=== PATIENT | male | born 1985 | race Caucasian/White ===

== ENCOUNTER 2024-03-06 10:25 | Emergency (ER) | payer MEDICARE, MEDICAID, SELFPAY ==
[2024-03-06 10:36] VITALS: BP 94/64
--- NOTE | 2024-03-06 10:41 | ED.GENMED ---
History of Present Illness
General
Chief Complaint: Crisis Evaluation
Source: patient
Exam Limitations: none
Time Seen by Provider: 03/06/24 10:35
Nursing documentation reviewed up to this point in time: agreed with
History of Present Illness
History of Present Illness:
38-year-old male presents with abnormal behavior, claiming he has several different names, stating that he invented the word doctor, and he is a doctor. He also states that he invented a planet.
Past History
Past History
ED Past Medical History: None and Psychiatric (Bipolar, ADHD, anxiety)
ED Past Surgical History: Orthopedic (Thumb)
Social History
Tobacco: Smoker
Alcohol: None
Drug: Marijuana
Family History
Family History: Unable to obtain
Review of Systems
Review of Systems
Allergies reviewed?: Yes
All Other Systems: Not applicable
Constitutional: Reports no symptoms
EENT: Reports no symptoms
Respiratory: Reports no symptoms
Cardiac: Reports no symptoms
ABD/GI: Reports no symptoms
: Reports no symptoms
Musculoskeletal: Reports no symptoms
Skin: Reports no symptoms
Neurological: Reports no symptoms
Endocrine: Reports no symptoms
Hematologic/Lymphatic: Reports no symptoms
Psychiatric: Reports hallucinations; Denies suicidal
Phy Exam
Physical Exam
Physical Exam:
Physical Exam
General: no apparent distress, not acutely ill
Neck: supple. no meningeal signs. normal posterior pharynx
Heart: s1/s2 regular rate and rhythm, no murmur. equal radial
pulses.
HEENT: Pupils equal round reactive to light, EOMI
Lungs: no acute respiratory distress. clear bilaterally
Abdomen: normal bowel sounds. not tender. no CVAT
Neuro: alert and oriented. no focal neurological deficits cranial nerves II through XII intact
Skin: no rash
Psychiatric: Poorly kept, interactive and somewhat cooperative. Tangential thought, grandiosity
Extremities: no edema. no calf tenderness. negative homans. good distal pulses
Course
Orders/Labs/Results
Orders:
Orders
03/06/24 10:40
Drug Screen, Urine [Urine Drug Abuse Screen] Urgent
03/06/24 10:45
Acetaminophen Urgent
Alcohol Urgent
Complete Blood Count/With Diff Urgent
Comprehensive Metabolic Panel Urgent
Salicylate Urgent
03/06/24 12:32
PSYCHIATRY CONSULT Urgent
Consulting Provider: Neville Ordoñez
Was physician already notified: Yes
Reason for consult: 302, psychosis
Abnormal Lab Results
03/06/24
10:45
WBC 12.7 H 10^3/uL
(4.8-10.8)
Plt Count 440 H 10^3/uL
(130-400)
Abs Immat Gran (auto) 0.1 H 10^3/uL
(0-0.05)
Absolute Neuts (auto) 8.8 H 10^3/uL
(1.4-6.5)
Absolute Monos (auto) 1.1 H 10^3/uL
(0.1-0.6)
Carbon Dioxide 19 L mmol/L
(22-30)
Calcium 10.4 H mg/dl
(8.4-10.2)
AST 114 H U/L
(17-59)
ALT 52 H U/L
(0-50)
Albumin 5.3 H g/dl
(3.5-5.0)
Salicylates < 1.0 L mg/dl
(2.0-20.0)
Acetaminophen < 10 L ug/ml
(10-30)
03/06/24 10:45
03/06/24 10:45
Vital Signs
Initial and Last Documented VS:
Initial Vital Signs
Temp Pulse Resp BP Pulse Ox
98.2 F 77 26 94/64 99
03/06/24 10:36 03/06/24 10:36 03/06/24 10:36 03/06/24 10:36 03/06/24 10:36
Last Documented Vital Signs
Temp Pulse Resp BP Pulse Ox
98.2 F 77 26 94/64 99
03/06/24 10:36 03/06/24 10:36 03/06/24 10:36 03/06/24 10:36 03/06/24 10:36
MDM/Problems Addressed
Differential Diagnosis Includes:
Psychosis, bipolar schizophrenia
MDM/Problems Addressed:
38-year-old male with bipolar psychotic episode.
Chronic conditions affecting care: Psychiatric illness (Bipolar)
Acute Exacerbation and/or Progression of Chronic Illness: Psychiatric illness (Bipolar)
*Pulse Oximetry
Patient hypoxic: no
*Critical Care Note
Total Time (30-74mins, 75-104mins- exclusive of procedures): Not Applicable
Patient Management
Social determinants of health affecting care: Living situation and Substance abuse
Discussion with other providers: Liquor Maker (psychiatry)
Escalation/DeEscalation of care consider admission/obs:
psychiatric transfer indicated
ED Attending Note
-
Portions of this chart may have been created with voice recognition software.� Occasional wrong word or��sound alike� substitutions may have occurred due to the inherent limitations of voice recognition software.
Discharge Plan
Departure
Patient Status:: 302
Condition: Good
Discharge Problem:
Schizoaffective disorder, bipolar type
Prescriptions:
No Action
No Current Medications
0
Referrals:
UNKNOWN - PT NOT,INTERVIEWE [Family Provider] -
Interventions
Interventions:
*Risk Screen - Suicide Last Done: 03/06/24 10:30
*General Assessment Last Done: 03/06/24 10:30
*Neglect/Abuse Screening Last Done: 03/06/24 10:30
ED- Fall Risk Assessment Last Done: 03/06/24 11:27
*ED COVID-19 Vaccine History Last Done: 03/06/24 10:30
ED-Psychological Assessment Last Done: 03/06/24 11:27
Discharge Date and Time
Print Language: TELUGU
[2024-03-06 10:58] LABS: % Basophils 0.9 % (0-2); % Eosinophils 0.5 % (0-6); % Immature Granulocytes 0.5 % (0-0.5); % Lymphocytes 20.7 % (20.5-51.1); % Monocytes 8.5 % (1.7-9.3); % Neutrophils 68.9 % (42.2-75.2); Absolute Basophils 0.1 10^3/uL (0-0.2); Absolute Eosinophils 0.1 10^3/uL (0-0.7); Absolute Immature Granulocytes 0.1 10^3/uL (0-0.05); Absolute Lymphocytes 2.6 10^3/uL (1.2-3.4); Absolute Monocytes 1.1 10^3/uL (0.1-0.6); Absolute Neutrophils 8.8 10^3/uL (1.4-6.5); Hematocrit 44.3 % (39.0-52.0); Hemoglobin 15.6 g/dL (13.0-18.0); Mean Corp Hgb Conc. 35.2 g/dL (33.0-37.0); Mean Corpuscular Hgb 29.3 pg (27.0-31.0); Mean Corpuscular Volume 83.1 fL (80.0-94.0); Mean Platelet Volume 10.2 fL (7.4-10.4); Nucleated Red Blood Cells % 0 % (-); Platelet Count 440 10^3/uL (130-400); Red Blood Cell Count 5.33 10^6/uL (4.70-6.10); Red Cell Dist. Width 12.8 % (11.5-14.5); White Blood Cell Count 12.7 10^3/uL (4.8-10.8)
[2024-03-06 11:05] LABS: ALT (SGPT) 52 U/L (0-50); AST (SGOT) 114 U/L (17-59); Acetaminophen < 10 ug/ml (10-30); Albumin 5.3 g/dl (3.5-5.0); Alkaline Phosphatase 72 U/L (38-126); Blood Urea Nitrogen 20 mg/dl (9-20); Calcium 10.4 mg/dl (8.4-10.2); Carbon Dioxide 19 mmol/L (22-30); Chloride 105 mmol/L (98-107); Glucose 96 mg/dl (70-99); Potassium 3.9 mmol/L (3.5-5.1); Salicylate < 1.0 mg/dl (2.0-20.0); Sodium 143 mmol/L (135-145); Total Bilirubin 0.7 mg/dl (0.2-1.3); Total Protein 8.1 g/dl (6.3-8.2); eGFR > 60.00
[2024-03-06 11:09] LABS: Alcohol None Detected
[2024-03-06] MEDS: HALDOL 5 MG IM (13:15)
[2024-03-06] MEDS: ATIVAN 2 MG IM (13:15)
--- NOTE | 2024-03-06 14:30 | W.PN.UPDATE ---
Update Note
Progress Note Update
Pt seen for 302 exam, brought in by police after found reportedly RIS/screaming, making delusional statements. No aggressive or self-harmful behavior is reported. Pt initially came in willingly, then left and was brought back by police who filed
the 302. Pt seen after eating lunch, was given Haldol and Ativan for general agitation. Pt somewhat disorganized, but overall cooperative. Pt denies any S/H ideation. Pt on the floor states he is 'resting.' Pt states he prefers to be homeless,
declines any services. Pt asked if his lab results are okay.
Imp/Rec: Unspecified psychotic d/o. 302 is not upheld, pt does not meet behavior criteria for involuntary treatment; there is no reported/alleged threat to self or others
Pt will be encouraged to seek outpatient treatment. Reviewed with Crisis staff.
== END 2024-03-06 20:37 ==
LOC: EMR 10:25
PROVIDERS: CONSULT PHYSICIAN Psychiatry & Neurology Psychiatry; EMERGENCY PHYSICIAN Emergency Medicine
DX: F25.0 Schizoaffective disorder, bipolar type (principal); F17.200 Nicotine dependence, unspecified, uncomplicated
CPT/HCPCS: 96372; 99284; 80053; 80143; 80179; 82077; 85025